=== PATIENT | female | born 1965 | race Caucasian/White ===

== ENCOUNTER 2016-09-22 13:40 | Day surgery (SDC) | payer MEDICARE, MEDICAID ==
[~2016-09-22] VITALS: Ht 167.6 cm; Wt 103.9 kg
[2016-09-22] MEDS ORDERED: KLONOPIN 0.5MG0.5 MG PO (14:01)
[2016-09-22] MEDS ORDERED: LAMICTAL 25MG T25 MG PO (14:02)
[2016-09-22] MEDS ORDERED: CYMBALTA 60MG60 MG PO (14:03)
[2016-09-22] MEDS ORDERED: SEROQUEL50 MG PO (14:04)
[2016-09-22] MEDS ORDERED: NEURONTIN300 MG/CAP PO (14:05)
[2016-09-22] MEDS ORDERED: AMBIEN 10MG10 MG PO (14:05)
[2016-09-22] MEDS ORDERED: TRILEPTAL 300M300 MG PO (14:06)
[2016-09-22 14:08] VITALS: BP 100/66; PULSE 108; TEMP 99.1
[2016-09-22 17:00] VITALS: BP 111/74; PULSE 128; TEMP 98.4
[2016-09-22 17:15] VITALS: BP 108/85; PULSE 110
[2016-09-22 18:08] VITALS: BP 133/95; PULSE 123
== END 2016-09-22 18:27 | disposition home or self-care (01) ==
LOC: SDCO 13:40
DX: K21.9 Gastro-esophageal reflux disease without esophagitis (principal); R11.2 Nausea with vomiting, unspecified; K44.9 Diaphragmatic hernia without obstruction or gangrene; R10.9 Unspecified abdominal pain; K57.30 Diverticulosis of large intestine without perforation or abscess without bleeding; K30 Functional dyspepsia; R19.7 Diarrhea, unspecified; K58.9 Irritable bowel syndrome, unspecified; B19.20 Unspecified viral hepatitis C without hepatic coma; K85.90 Acute pancreatitis without necrosis or infection, unspecified; R60.9 Edema, unspecified; F41.8 Other specified anxiety disorders; F17.210 Nicotine dependence, cigarettes, uncomplicated

== ENCOUNTER 2016-09-22 17:45 | Emergency (ER) | payer MEDICARE, MEDICAID ==
[~2016-09-22] VITALS: Ht 167.6 cm; Wt 103.6 kg
[~2016-09-22 17:45] MED LIST: AMBIEN 10MG10 MG PO; CYMBALTA 60MG60 MG PO; KLONOPIN 0.5MG0.5 MG PO; LAMICTAL 25MG T25 MG PO; NEURONTIN300 MG/CAP PO; SEROQUEL50 MG PO; TRILEPTAL 300M300 MG PO
[2016-09-22 17:47] VITALS: TEMP 98.6
[2016-09-22 18:52] VITALS: BP 123/88; PULSE 94
== END 2016-09-22 18:52 | disposition home or self-care (01) ==
LOC: COL.ER 17:45
DX: G89.29 Other chronic pain (principal); R10.84 Generalized abdominal pain
CPT/HCPCS: J2550

== ENCOUNTER 2016-10-11 14:35 | Emergency (ER) | payer MEDICARE, MEDICAID ==
[~2016-10-11] VITALS: Ht 167.6 cm; Wt 100.0 kg
[2016-10-11 14:45] VITALS: TEMP 98.8
[2016-10-11 15:37] LABS: BASO % 0.3 % (0.0-2.0); EOS # 0.1 (0.0-0.7); EOS % 1.4 % (0-4.0); GRAN # 6.9 (1.4-6.5); GRAN % 76.6 % (42.2-75.2); HEMATOCRIT 40.4 % (37.0-47.0); HEMOGLOBIN 13.7 g/dl (12.5-16.0); LYMPH # 1.6 (1.2-3.4); LYMPH % 17.6 % (20.0-51.0); MEAN CELL VOLUME 90 fl (80.0-100.0); MEAN CORPUSCULAR HEMOGLOBIN 30 pg (27.0-31.0); MEAN CORPUSCULAR HGB CONC 34 g/dl (33.0-37.0); MEAN PLATELET VOLUME 10.2 fl (7.4-10.4); MONO # 0.3 (0.1-0.6); MONO % 3.7 % (1.7-9.3); PLATELET COUNT 172 K/mm3 (130-400); RED BLOOD COUNT 4.51 M/mm3 (4.10-5.30); REDCELL DISTRIBUTION WIDTH-CV 13.3 % (11.5-14.5)
[2016-10-11 15:56] LABS: C-REACTIVE PROTEIN 0.6 mg/dL (0.0-0.9); LIPASE 171 U/L (23-300)
[2016-10-11 15:57] LABS: ACETAMINOPHEN < 10 ug/mL (10-30); SALICYLATE < 1.0 mg/dL
[2016-10-11 16:12] LABS: PH 5 (5-8); SQUAMOUS EPITHELIAL 0-2 /hpf; URINE APPEARANCE Clear; URINE BACTERIA Rare /hpf; URINE BILIRUBIN Negative (NEGATIVE); URINE BLOOD Negative (NEGATIVE); URINE COLOR Yellow; URINE GLUCOSE Negative (NEGATIVE); URINE KETONE Negative (NEGATIVE); URINE UROBILINOGEN Negative (NEGATIVE); URINE WBC 0-2 /hpf
[2016-10-11 16:16] LABS: ADJUSTED CALCIUM 9.1 mg/dL (8.4-10.2); ALBUMIN 3.9 gm/dL (3.5-5.0); BILIRUBIN,TOTAL 0.4 mg/dL (0.0-1.0); CREATININE, serum 0.81 mg/dL (0.52-1.25); POTASSIUM 3.6 mmol/L (3.4-5.0); TOTAL PROTEIN 7.3 gm/dL (6.4-8.2)
[2016-10-11 16:17] LABS: AMPHETAMINE URINE NEGATIVE; BARBITURATES URINE NEGATIVE; BENZODIAZEPINES URINE NEGATIVE; BUPRENORPHINE URINE NEGATIVE; METHADONE URINE NEGATIVE; OPIATES URINE NEGATIVE; OXYCODONE URINE NEGATIVE; PHENCYCLIDINE URINE NEGATIVE; PROPOXYPHENE URINE NEGATIVE; THC CANNABINOIDS URINE NEGATIVE
[2016-10-11 20:30] VITALS: BP 112/86; PULSE 80
== END 2016-10-11 20:35 ==
LOC: COL.ER 14:35
PROVIDERS: Emergency Medicine
DX: F32.9 Major depressive disorder, single episode, unspecified (principal); R45.851 Suicidal ideations; R10.84 Generalized abdominal pain; G89.29 Other chronic pain; E03.9 Hypothyroidism, unspecified

== ENCOUNTER 2016-12-08 21:27 | Emergency (ER) | payer MEDICARE, MEDICAID ==
[~2016-12-08] VITALS: Ht 167.6 cm; Wt 100.0 kg
[2016-12-08 21:32] VITALS: TEMP 99.3
[2016-12-08 23:06] LABS: BASO % 0.4 % (0.0-2.0); EOS # 0.2 (0.0-0.7); GRAN # 4.4 (1.4-6.5); GRAN % 57.2 % (42.2-75.2); HEMATOCRIT 38.1 % (37.0-47.0); HEMOGLOBIN 12.5 g/dl (12.5-16.0); LYMPH # 2.5 (1.2-3.4); LYMPH % 32.2 % (20.0-51.0); MEAN CELL VOLUME 94 fl (80.0-100.0); MEAN CORPUSCULAR HEMOGLOBIN 31 pg (27.0-31.0); MEAN CORPUSCULAR HGB CONC 33 g/dl (33.0-37.0); MEAN PLATELET VOLUME 10.9 fl (7.4-10.4); MONO # 0.5 (0.1-0.6); MONO % 6.8 % (1.7-9.3); PLATELET COUNT 189 K/mm3 (130-400); RED BLOOD COUNT 4.07 M/mm3 (4.10-5.30); REDCELL DISTRIBUTION WIDTH-CV 13.3 % (11.5-14.5); WHITE BLOOD COUNT 7.7 K/mm3 (4.8-10.8)
[2016-12-08 23:12] LABS: PH 5 (5-8); URINE APPEARANCE Hazy; URINE BACTERIA None Seen /hpf; URINE BILIRUBIN Negative (NEGATIVE); URINE BLOOD 2+ (NEGATIVE); URINE COLOR Yellow; URINE GLUCOSE Negative (NEGATIVE); URINE KETONE Negative (NEGATIVE); URINE RBC 0-2 /hpf; URINE UROBILINOGEN Negative (NEGATIVE)
[2016-12-08 23:14] LABS: ADJUSTED CALCIUM 8.5 mg/dL (8.4-10.2); ALBUMIN 4.2 gm/dL (3.5-5.0); BILIRUBIN,TOTAL 0.6 mg/dL (0.0-1.0); CALCIUM 8.7 mg/dL (8.4-10.2); CREATININE, serum 0.81 mg/dL (0.52-1.25); POTASSIUM 3.4 mmol/L (3.4-5.0); TOTAL PROTEIN 7.9 gm/dL (6.4-8.2)
[2016-12-08] MEDS ORDERED: CEPHALEXIN500 M1 PO (23:39)
[2016-12-09 00:03] VITALS: BP 115/74; PULSE 102
== END 2016-12-09 00:05 | disposition home or self-care (01) ==
LOC: COL.ER 21:27
PROVIDERS: Emergency Medicine
DX: F15.10 Other stimulant abuse, uncomplicated (principal); R10.11 Right upper quadrant pain; K58.9 Irritable bowel syndrome, unspecified; Z87.19 Personal history of other diseases of the digestive system
CPT/HCPCS: J1885; J2405; J7030

== ENCOUNTER 2017-03-20 07:53 | Emergency (ER) | payer MEDICARE, MEDICAID ==
[~2017-03-20] VITALS: Ht 167.6 cm; Wt 104.5 kg
[~2017-03-20 07:53] MED LIST changes: +CEPHALEXIN500 M1 PO
[2017-03-20 07:56] VITALS: TEMP 98.3
[2017-03-20 08:54] LABS: COLLECTION METHOD CLEAN CATCH
[2017-03-20 09:08] LABS: BUDDING YEAST Present /hpf; MUCOUS Present /lpf; PH 5 (5-8); URINE APPEARANCE Cloudy; URINE BACTERIA None Seen /hpf; URINE BILIRUBIN Negative (NEGATIVE); URINE BLOOD 1+ (NEGATIVE); URINE COLOR Yellow; URINE GLUCOSE Negative (NEGATIVE); URINE KETONE Negative (NEGATIVE); URINE LEUKOCYTE ESTERASE Negative (NEGATIVE); URINE PROTEIN(semi-quant) 2+ (NEGATIVE); URINE RBC 0-2 /hpf
[2017-03-20 09:10] LABS: BASO # 0.1 (0.0-0.2); BASO % 0.4 % (0.0-2.0); EOS # 0.1 (0.0-0.7); EOS % 0.6 % (0-4.0); GRAN # 8.9 (1.4-6.5); GRAN % 75.1 % (42.2-75.2); HEMOGLOBIN 14.3 g/dl (12.5-16.0); LYMPH % 16.7 % (20.0-51.0); MEAN CELL VOLUME 93 fl (80.0-100.0); MEAN CORPUSCULAR HEMOGLOBIN 31 pg (27.0-31.0); MEAN CORPUSCULAR HGB CONC 33 g/dl (33.0-37.0); MEAN PLATELET VOLUME 10.1 fl (7.4-10.4); MONO # 0.8 (0.1-0.6); MONO % 6.9 % (1.7-9.3); PLATELET COUNT 224 K/mm3 (130-400); RED BLOOD COUNT 4.65 M/mm3 (4.10-5.30); WHITE BLOOD COUNT 11.8 K/mm3 (4.8-10.8)
[2017-03-20 09:39] LABS: ADJUSTED CALCIUM 9.4 mg/dL (8.4-10.2); ALBUMIN 4.9 gm/dL (3.5-5.0); CALCIUM 10.1 mg/dL (8.4-10.2); CREATININE, serum 0.93 mg/dL (0.52-1.25); POTASSIUM 3.8 mmol/L (3.4-5.0); TOTAL PROTEIN 8.5 gm/dL (6.4-8.2)
[2017-03-20 10:06] LABS: AMYLASE 52 U/L (30-110); LIPASE 193 U/L (23-300)
[2017-03-20] MEDS ORDERED: MACROBID 1100 MG/CAP PO (10:39)
[2017-03-20 11:10] VITALS: BP 129/98; PULSE 97
== END 2017-03-20 11:11 | disposition home or self-care (01) ==
LOC: COL.ER 07:53
PROVIDERS: Emergency Medicine
DX: N39.0 Urinary tract infection, site not specified (principal); R10.31 Right lower quadrant pain; G89.29 Other chronic pain; F17.210 Nicotine dependence, cigarettes, uncomplicated; F15.10 Other stimulant abuse, uncomplicated; Z90.49 Acquired absence of other specified parts of digestive tract; Z87.442 Personal history of urinary calculi
CPT/HCPCS: J0500; J0696; J1170; J3010